=== PATIENT | male | born 1990 | race Caucasian/White ===

== ENCOUNTER 2019-04-22 17:42 | Emergency (ER) | payer BC, MEDICAID ==
[~2019-04-22] VITALS: Ht 175.3 cm; Wt 59.0 kg
[2019-04-22 18:19] VITALS: BP 135/78
[2019-04-22] MEDS ORDERED: IBUPROFEN 600 MG TABLET PO ONE ×2 (18:30→18:38)
[2019-04-22] MEDS ORDERED: IV NS 0.9% 1,000 ML BAG IV ONE (18:30)
== END 2019-04-22 19:51 | disposition home or self-care (01) ==
LOC: ER 17:46
DX: E86.0 Dehydration (principal); F17.200 Nicotine dependence, unspecified, uncomplicated
CPT/HCPCS: J7030